=== PATIENT | female | born 1965 | race Caucasian/White ===

== ENCOUNTER 2017-07-28 12:59 | Emergency (ER) | payer OTHER ==
[~2017-07-28] VITALS: Ht 167.6 cm; Wt 116.1 kg
--- NOTE | ~2017-07-28 | CR181 ---
[facility] A Service of [facility] RADIOLOGY TEXT RESULTS PATIENT: CLAUDIA MORGAN LOCATION: [facility] : 61 UNIT #: [id number] AGE: [address]: Lidia Mayes APRN SEX: F ORDER DR: [id number] [facility]. [place], [place] [address] [id number] MR#: [id number] Acc #: [id number] NAME: CLAUDIA MORGAN : 1965 SEX: F STUDY DATE/TIME: 07/28/2017 UNIT: [facility] ROOM: STUDY DESCRIPTION: CR Lumbar Spine 2 or 3 Views Attending Physician: Lidia Mayes A.P.R.N. Ordering Physician: [facility] MEDICAL IMAGING REPORT This report is preliminary unless electronic signature is present EXAM Lumbar spine series 07/28/2017 1354 hours HISTORY Patient developed acute low back pain after bending over yesterday. No radicular symptoms reported. COMPARISON None. TECHNIQUE AP and lateral views of the lumbar spine and a cone lateral view of the lumbosacral junction were performed. 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 There is no acute fracture or disc height loss. There is mild endplate spurring. Mild facet arthropathy. IMPRESSION 1. No acute fracture or subluxation. 2. 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 3. Mild endplate spurring. Dictated by... Norma Groves M.D. THIS IS AN ELECTRONICALLY VERIFIED REPORT [facility] A Service of [facility] RADIOLOGY TEXT RESULTS PATIENT: CLAUDIA MORGAN LOCATION: [facility] : 61 UNIT #: [id number] AGE: [address]: Lidia Mayes APRN SEX: F ORDER DR: Norma Groves M.D. at 07/29/2017 11:08 AM BRITTANI/christos TD: 07/28/2017 20:20 JOB #: [id number] MEDICAL IMAGING REPORT Page 1 of 1 COPY
== END 2017-07-28 15:21 | disposition home or self-care (01) ==
LOC: CED 12:59 → CFTX 12:59
DX: M54.41 Lumbago with sciatica, right side (principal)
CPT/HCPCS: 72100; 96372; 99283; J1885